=== PATIENT | female | born 1935 | race Caucasian/White ===

== ENCOUNTER → 2019-11-16 09:34 | Outpatient (CLI) | payer MEDICARE, SELFPAY ==
--- NOTE | ~2019-11-16 | XR_ITS ---
EXAMINATION: XR hip LT min 2V DATE: 11/16/2019 10:17 INDICATION: Left hip pain. Fall. TECHNIQUE: 3 views of left hip were obtained. COMPARISON: None. FINDINGS: There is a bipolar left hip hemiarthroplasty in near-anatomic alignment. No periprosthetic lucency to suggest loosening or infection. There are osteophytes of left acetabulum. No fracture. The re are stent grafts in the common iliac arteries and left external iliac artery. There is coil emboli zation of left internal iliac artery. IMPRESSION: 1. 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 2. Mild left hip osteoarthritis. Reviewed, dictated and finalized at location B. [employer]
== END ==
DX: M16.12 Unilateral primary osteoarthritis, left hip (principal)
CPT/HCPCS: 73502

== ENCOUNTER 2020-04-15 09:52 | Emergency (ER) | payer MEDICARE, SELFPAY ==
[2020-04-15 10:01] VITALS: BP 95/63; PULSE 81; RESP 16; TEMP 36.6; O2SAT 95
--- NOTE | 2020-04-15 10:11 | ED.SKABFB ---
HPI - Skin/Abscess/Foreign Bdy General Chief complaint: Skin/Abscess/Foreign Body Stated complaint: rash on side of face Time Seen by Provider: 04/15/20 10:10 Source: patient and RN notes reviewed Mode of arrival: ambulatory Limitations: no limitations History of Present Illness HPI narrative: 84 old female presents with concern to a red rash on the left side of her cheek. Reports she noticed it this morning, reports it carl[place], does not itch. Denies any new make-up, facial creams, personal care products, medications. Denies any current rash anywhere else. Reports she had a similar rash under her left arm that she was seen for by her doctor and prescribed clotrimazole triamcinolone cream. Reports that rash is gone away. Reports she has not used the cream on her face today. She denies any swollen lips, tongue, difficulty breathing, difficulty swallowing. MD complaint: rash Related Data Home Medications Medication Instructions Recorded Confirmed albuterol sulfate [Ventolin HFA] 2 puff INHALATION QID PRN 11/04/19 11/04/19 alprazolam 0.5 mg PO BID PRN 11/04/19 11/04/19 aspirin 325 mg PO DAILY 11/04/19 11/04/19 budesonide-formoterol [Symbicort] 2 puff INHALATION Q12H 11/04/19 11/04/19 clopidogrel [Plavix] 75 mg PO DAILY 11/04/19 11/04/19 oxybutynin chloride 15 mg PO DAILY 11/04/19 11/04/19 pantoprazole 40 mg PO QAM 11/04/19 11/04/19 potassium chloride 10 meq PO DAILY 11/04/19 11/04/19 sertraline 50 mg PO DAILY 11/04/19 11/04/19 Allergies Allergy/AdvReac Type Severity Reaction Status Date / Time atorvastatin Allergy Mild Unknown Verified 11/04/19 11:02 erythromycin base Allergy Mild Other Verified 11/04/19 11:02 naproxen Allergy Mild Unknown Verified 11/04/19 11:02 penicillin G Allergy Mild Rash Verified 11/04/19 11:02 Sulfa (Sulfonamide Allergy Mild Rash Verified 11/04/19 11:02 Antibiotics) tramadol Allergy Mild Unknown Verified 11/04/19 11:02 codeine AdvReac Mild Nausea and Verified 11/04/19 11:02 Vomiting Review of Systems Review of Systems: Narrative: CONSTITUTIONAL: Denies malaise, chills, sweats, or fever. EYES: Denies redness, or discharge. SKIN: Reports rash on left cheek MUSCULOSKELETAL: Denies myalgia. NEUROLOGIC: Denies headache. All systems reviewed & are unremarkable except as noted in HPI and below PMFSH Past Medical History Medical History (Updated 04/15/20 @ 10:22 by Yvrose Awan NP) Arthritis Bronchitis COPD (chronic obstructive pulmonary disease) GERD (gastroesophageal reflux disease) Hyperlipidemia Hypertension UTI (urinary tract infection) Surgical History Surgical History (Updated 11/05/19 @ 19:45 by Shira Blancas NP) H/O carotid endarterectomy H/O: hysterectomy Social History Social History (Updated 11/04/19 @ 12:32 by Shira Blancas NP) Smoking status: Former smoker Gender identity (if verbalized by the patient): Female Comments At time of signature, agree with nursing past medical, surgical, social and family history. There is no relevant family history pertinent to the presenting complaint Exam Narrative: Exam Narrative: GENERAL: Well-appearing, well-nourished, and in no acute distress. HEAD: Normocephalic, atraumatic. EYES: PERRLA, conjunctivae clear ENT: Nares clear. Mucous membranes moist. NECK: Supple. CHEST: No respiratory distress. Speaks in full sentences. HEART: Regular rate and rhythm. SKIN: Warm, dry. Erythematous patch noted to left cheek, nonraised, no papules noted. Nontender with no induration or edema. NEURO: Alert and oriented x3. PSYCH: Normal mood and affect Course Course Emergency Course: Instructed patient to apply her clotrimazole triamcinolone cream twice daily as directed by her doctor. And to follow-up with her doctor if symptoms do not improve. Patient is aware of diagnosis, understands and agrees to treatment plan. Anticipatory guidance given. Patient agrees to follow-up as directed and is aware of reasons to seek
== END 2020-04-15 10:29 | disposition home or self-care (01) ==
PROVIDERS: Emergency Provider Nurse Practitioner
DX: R21 Rash and other nonspecific skin eruption (principal); Z79.82 Long term (current) use of aspirin; Z79.02 Long term (current) use of antithrombotics/antiplatelets; M19.90 Unspecified osteoarthritis, unspecified site; J44.9 Chronic obstructive pulmonary disease, unspecified; K21.9 Gastro-esophageal reflux disease without esophagitis; E78.5 Hyperlipidemia, unspecified; I10 Essential (primary) hypertension; Z87.440 Personal history of urinary (tract) infections; Z87.891 Personal history of nicotine dependence
CPT/HCPCS: 99211; G0463

== ENCOUNTER 2020-09-24 11:00 | Emergency (ER) | payer MEDICARE, SELFPAY ==
--- NOTE | 2020-09-24 11:07 | ED.URI ---
HPI - URI/Sore Throat General Chief Complaint: Upper Respiratory Infection Stated Complaint: sore throat Time Seen by Provider: 09/24/20 11:07 Source: patient, RN notes reviewed and other (caregiver) History of Present Illness HPI Narrative: Patient is an 84-year-old female who presents the urgent care with her caregiver with complaints of a sore throat for the last 2 days. Patient states it is difficult to swallow due to the soreness. Also reports of some mild chest congestion without cough. Patient does have a history of COPD and uses albuterol when she remembers . Patient denies of any shortness of breath or chest pain. Denies of any other upper respiratory symptoms. Denies of any recent exposure to strep or Covid. Patient states she has been tested several times recently due to having to see her yard cleaner and her orthopedic due to recent right wrist fracture. Patient has been using hydrocodone for her pain. No other acute complaints. No acute distress noted. Patient and caregiver aware of the plan of care. Some parts of this dictation were generated by voice recognition software and may contain typographical and/or grammatical inaccuracies. Related Data Home Medications Medication Instructions Recorded Confirmed albuterol sulfate [Ventolin HFA] 2 puff INHALATION QID PRN 11/04/19 11/04/19 alprazolam 0.5 mg PO BID PRN 11/04/19 11/04/19 clopidogrel [Plavix] 75 mg PO DAILY 11/04/19 11/04/19 oxybutynin chloride 15 mg PO DAILY 11/04/19 11/04/19 pantoprazole 40 mg PO QAM 11/04/19 11/04/19 potassium chloride 10 meq PO DAILY 11/04/19 11/04/19 sertraline 50 mg PO DAILY 11/04/19 11/04/19 ferrous sulfate 325 mg PO DAILY 09/24/20 09/24/20 gabapentin 100 mg PO TID 09/24/20 09/24/20 hydrocodone-acetaminophen 1 tablet PO Q6H PRN 09/24/20 09/24/20 ropinirole 0.25 mg PO BID 09/24/20 09/24/20 Allergies Allergy/AdvReac Type Severity Reaction Status Date / Time atorvastatin Allergy Mild Unknown Verified 09/24/20 11:26 erythromycin base Allergy Mild Other Verified 09/24/20 11:26 naproxen Allergy Mild Unknown Verified 09/24/20 11:26 penicillin G Allergy Mild Rash Verified 09/24/20 11:26 Sulfa (Sulfonamide Allergy Mild Rash Verified 09/24/20 11:26 Antibiotics) tramadol Allergy Mild Unknown Verified 09/24/20 11:26 codeine AdvReac Mild Nausea and Verified 09/24/20 11:26 Vomiting Review of Systems Review of Systems: Narrative: CONSTITUTIONAL: Denies fever, chills, or sweats. EYES: Denies visual changes, redness, or discharge. ENT: Reports of sore throat CARDIOVASCULAR: Denies chest pain, palpitations, or edema. RESPIRATORY: Denies cough or dyspnea. GASTROINTESTINAL: Denies abdominal pain, nausea, vomiting, or diarrhea. GENITOURINARY: Denies dysuria or hematuria. SKIN: Denies rash or itching. MUSCULOSKELETAL: Denies back pain, joint pain, or myalgia. NEUROLOGIC: Denies headache, numbness, or weakness. All other systems reviewed are negative, except as documented in HPI. [facility] Past Medical History Medical History (Updated 09/24/20 @ 11:40 by CHATA Garcia) Arthritis Bronchitis COPD (chronic obstructive pulmonary disease) GERD (gastroesophageal reflux disease) Hyperlipidemia Hypertension UTI (urinary tract infection) Surgical History Surgical History (Updated 11/05/19 @ 19:45 by Shira Blancas NP) H/O carotid endarterectomy H/O: hysterectomy Social History Social History (Updated 11/04/19 @ 12:32 by Shira Blancas NP) Smoking status: Former smoker Gender identity (if verbalized by the patient): Female Comments At the time of my signature, I reviewed and agree with the nursing past medical, surgical, social, and family history. There is no relevant family history pertinent to the patient complaint. Exam Narrative: Exam Narrative: GENERAL: This is a well-nourished, well-developed patient, in no apparent distress. HEAD: normocephalic, atraumatic. EYES: PERRL. Sclera clear/white. Vision
[2020-09-24 11:11] VITALS: BP 106/64; PULSE 78; RESP 16; TEMP 36.3; O2SAT 98
[2020-09-24 11:32] VITALS: BP 106/64; PULSE 78; RESP 16; TEMP 36.3; O2SAT 98
== END 2020-09-24 11:45 | disposition home or self-care (01) ==
PROVIDERS: Emergency Provider Nurse Practitioner Family; PCP Internal Medicine
DX: J02.9 Acute pharyngitis, unspecified (principal); M19.90 Unspecified osteoarthritis, unspecified site; J44.9 Chronic obstructive pulmonary disease, unspecified; K21.9 Gastro-esophageal reflux disease without esophagitis; E78.5 Hyperlipidemia, unspecified; I10 Essential (primary) hypertension; Z87.891 Personal history of nicotine dependence
CPT/HCPCS: 87081; 87880; 99213; G0463

== ENCOUNTER 2021-01-17 09:42 | Emergency (ER) | payer MEDICARE, SELFPAY | END 2021-01-17 10:25 | disposition left against medical advice (07) | LOC: EXPBETH 09:46 | PROVIDERS: Emergency Provider Nurse Practitioner Family; PCP Internal Medicine | DX: Z53.21 Procedure and treatment not carried out due to patient leaving prior to being seen by health care provider (principal) | CPT/HCPCS: 99199 ==

== ENCOUNTER 2021-04-11 12:02 | Emergency (ER) | payer MEDICARE, SELFPAY ==
[2021-04-11 12:10] VITALS: BP 106/54; PULSE 84; RESP 20; TEMP 36.8; O2SAT 100
--- NOTE | 2021-04-11 12:44 | ED.FEMALEGU ---
HPI - Female Genitourinary General Chief complaint: Urogenital-Female Stated complaint: Possible UTI Time Seen by Provider: 04/11/21 12:36 Source: patient and RN notes reviewed Mode of arrival: ambulatory Limitations: no limitations History of Present Illness HPI Narrative: 85-year-old female presents with concern for urinary tract infection. Reports history of frequent urinary tract infections, last had a urinary tract infection approximately 2 months ago. Reports to 3-day history of dysuria, frequency, increased incontinence. Denies abdominal pain, back pain, fever, nausea, vomiting, confusion, decreased appetite, decreased activity. Related Data Home Medications Medication Instructions Recorded Confirmed albuterol sulfate [Ventolin HFA] 2 puff INHALATION QID PRN 11/04/19 04/11/21 alprazolam 0.5 mg PO BID PRN 11/04/19 04/11/21 clopidogrel [Plavix] 75 mg PO DAILY 11/04/19 04/11/21 oxybutynin chloride 15 mg PO DAILY 11/04/19 04/11/21 pantoprazole 40 mg PO QAM 11/04/19 04/11/21 potassium chloride 10 meq PO DAILY 11/04/19 09/24/20 sertraline 50 mg PO DAILY 11/04/19 09/24/20 ferrous sulfate 325 mg PO DAILY 09/24/20 04/11/21 gabapentin 100 mg PO BID 09/24/20 09/24/20 ropinirole 0.25 mg PO BID 09/24/20 09/24/20 Allergies Allergy/AdvReac Type Severity Reaction Status Date / Time atorvastatin Allergy Mild Unknown Verified 04/11/21 12:31 erythromycin base Allergy Mild Other Verified 04/11/21 12:31 naproxen Allergy Mild Unknown Verified 04/11/21 12:31 penicillin G Allergy Mild Rash Verified 04/11/21 12:31 Sulfa (Sulfonamide Allergy Mild Rash Verified 04/11/21 12:31 Antibiotics) tramadol Allergy Mild Unknown Verified 04/11/21 12:31 codeine AdvReac Mild Nausea and Verified 04/11/21 12:31 Vomiting Review of Systems Review of Systems: Narrative: CONSTITUTIONAL: Denies malaise, chills, sweats, or fever. CARDIOVASCULAR: Denies chest pain, palpitations, or edema. RESPIRATORY: Denies cough or dyspnea. GASTROINTESTINAL: Denies abdominal pain, nausea, vomiting, diarrhea GENITOURINARY: Reports frequency, dysuria. Denies hematuria. MUSCULOSKELETAL: Denies back pain, joint pain, or myalgia. All systems reviewed & are unremarkable except as noted in HPI and below PMFSH Past Medical History Medical History (Updated 04/11/21 @ 12:45 by Yvrose Awan NP) Arthritis Bronchitis COPD (chronic obstructive pulmonary disease) GERD (gastroesophageal reflux disease) Hyperlipidemia Hypertension UTI (urinary tract infection) Surgical History Surgical History (Updated 11/05/19 @ 19:45 by Shira Blancas NP) H/O carotid endarterectomy H/O: hysterectomy Social History Social History (Updated 11/04/19 @ 12:32 by Shira Blancas NP) Smoking status: Former smoker Gender identity (if verbalized by the patient): Female Comments At time of signature, agree with nursing past medical, surgical, social and family history. There is no relevant family history pertinent to the presenting complaint Exam Narrative: Exam Narrative: GENERAL: Well-appearing, well-nourished, and in no acute distress. HEAD: Normocephalic. EYES: PERRLA, conjunctivae clear. NECK: Supple. No lymphadenopathy CHEST: Clear to auscultation. No respiratory distress. HEART: Regular rate and rhythm. ABDOMEN: Soft, nontender upon palpation, nondistended, normal active bowel sounds, no palpable or pulsatile masses, no guarding. No CVA tenderness SKIN: Warm, dry, no rash. NEURO: Alert and oriented x3. PSYCH: Normal mood and affect Course Course Emergency Course: Patient is aware of diagnosis, understands and agrees to treatment plan. Anticipatory guidance given. Patient agrees to follow-up as directed and is aware of reasons to seek care at the emergency department. Portions of this record may have been created with voice recognition software Vital Signs Vital signs: Vital Signs Temperature 98.3 F 04/11/21 12:10 Pulse Rate 84 04/11/21 12:10
== END 2021-04-11 12:50 | disposition home or self-care (01) ==
PROVIDERS: Emergency Provider Nurse Practitioner; PCP Internal Medicine
DX: N39.0 Urinary tract infection, site not specified (principal); M19.90 Unspecified osteoarthritis, unspecified site; J44.9 Chronic obstructive pulmonary disease, unspecified; K21.9 Gastro-esophageal reflux disease without esophagitis; E78.5 Hyperlipidemia, unspecified; I10 Essential (primary) hypertension; Z87.891 Personal history of nicotine dependence
CPT/HCPCS: 81003; 87077; 87086; 87186; 99213; G0463

== ENCOUNTER 2021-05-23 16:32 | Emergency (ER) | payer MEDICARE, SELFPAY ==
[2021-05-23 16:40] VITALS: BP 90/60; PULSE 82; RESP 16; TEMP 36.8; O2SAT 96
--- NOTE | 2021-05-23 16:45 | ED.FEMALEGU ---
HPI - Female Genitourinary General Chief complaint: Urogenital-Female Stated complaint: Possible UTI Time Seen by Provider: 05/23/21 17:10 Source: patient and RN notes reviewed Mode of arrival: ambulatory Limitations: no limitations History of Present Illness HPI Narrative: 85-year-old female presents with concern for ongoing urinary tract infection. Reports she was seen 1 month ago here and was given ciprofloxacin for urinary tract infection. Reports she only took 3 to 4 tablets because the paper with the medication said it could kill her . She followed up with her urologist who put her on Macrobid which she recently finished. She reports symptoms have not improved with burning with urination and she just does not feel good. Patient's daughter reports that her mother is not acting like herself. She reports normal appetite, denies abdominal pain, flank pain, vomiting, fever, body aches. MD elicited complaint: UTI Related Data Home Medications Medication Instructions Recorded Confirmed alprazolam 0.5 mg PO BID PRN 11/04/19 05/23/21 clopidogrel [Plavix] 75 mg PO DAILY 11/04/19 05/23/21 oxybutynin chloride 15 mg PO DAILY 11/04/19 05/23/21 pantoprazole 40 mg PO QAM 11/04/19 05/23/21 potassium chloride 10 meq PO DAILY 11/04/19 05/23/21 sertraline 50 mg PO DAILY 11/04/19 05/23/21 ferrous sulfate 325 mg PO DAILY 09/24/20 05/23/21 gabapentin 100 mg PO BID 09/24/20 05/23/21 ropinirole 0.25 mg PO BID 09/24/20 05/23/21 Allergies Allergy/AdvReac Type Severity Reaction Status Date / Time atorvastatin Allergy Mild Unknown Verified 05/23/21 16:59 erythromycin base Allergy Mild Other Verified 05/23/21 16:59 naproxen Allergy Mild Unknown Verified 05/23/21 16:59 penicillin G Allergy Mild Rash Verified 05/23/21 16:59 Sulfa (Sulfonamide Allergy Mild Rash Verified 05/23/21 16:59 Antibiotics) tramadol Allergy Mild Unknown Verified 05/23/21 16:59 codeine AdvReac Mild Nausea and Verified 05/23/21 16:59 Vomiting Review of Systems Review of Systems: CONSTITUTIONAL: Denies malaise, chills, sweats, or fever. CARDIOVASCULAR: Denies chest pain, palpitations, or edema. RESPIRATORY: Denies cough or dyspnea. GASTROINTESTINAL: Denies abdominal pain, nausea, vomiting, diarrhea, bloody, or mucous stools. GENITOURINARY: Reports dysuria, hematuria, urgency. MUSCULOSKELETAL: Denies flank pain or myalgia. NEUROLOGIC: Denies numbness, weakness, or headache. PSYCHIATRIC: Denies confusion All systems reviewed & are unremarkable except as noted in HPI and below PMFSH Past Medical History Medical History (Updated 05/23/21 @ 17:32 by Yvrose Awan NP) Arthritis Bronchitis COPD (chronic obstructive pulmonary disease) GERD (gastroesophageal reflux disease) Hyperlipidemia Hypertension UTI (urinary tract infection) Surgical History Surgical History (Updated 11/05/19 @ 19:45 by Shira Blancas NP) H/O carotid endarterectomy H/O: hysterectomy Social History Social History (Updated 11/04/19 @ 12:32 by Shira Blancas NP) Smoking status: Former smoker Gender identity (if verbalized by the patient): Female Comments At time of signature, agree with nursing past medical, surgical, social and family history. There is no relevant family history pertinent to the presenting complaint Exam Narrative: GENERAL: Well-appearing, well-nourished, and in no acute distress. HEAD: Normocephalic. EYES: PERRLA, conjunctivae clear. NECK: Supple. No lymphadenopathy CHEST: Clear to auscultation. No respiratory distress. HEART: Regular rate and rhythm. ABDOMEN: Mild suprapubic tenderness. Soft, nontender upon palpation, nondistended, normal active bowel sounds, no palpable or pulsatile masses, no guarding. No CVA tenderness SKIN: Warm, dry, no rash. NEURO: Alert and oriented x3. PSYCH: Normal mood and affect Course Course Emergency Course: Patient does not have any history of IgE mediated reaction to penicillin. Patient is agreeable to R
[2021-05-23 16:59] VITALS: BP 90/60; PULSE 82; RESP 16; TEMP 36.8; O2SAT 96
[2021-05-23] MEDS: cefTRIAXone 250 MG VIAL 1000 MG IM (17:36)
[2021-05-23] MEDS: LIDOCAINE HCL 1% LOCAL INJ 20 ML VIAL INFILTRATE (17:36)
--- NOTE | 2021-05-23 17:54 | PC.NURSE ---
1736--RN ADMINISTERED 250MG OF ROCEPHIN IM ORDERED BY PROVIDER.
== END 2021-05-23 18:00 | disposition home or self-care (01) ==
PROVIDERS: Emergency Provider Nurse Practitioner; PCP Internal Medicine
DX: N39.0 Urinary tract infection, site not specified (principal); M19.90 Unspecified osteoarthritis, unspecified site; J44.9 Chronic obstructive pulmonary disease, unspecified; K21.9 Gastro-esophageal reflux disease without esophagitis; E78.5 Hyperlipidemia, unspecified; I10 Essential (primary) hypertension; Z87.891 Personal history of nicotine dependence
CPT/HCPCS: 81003; 87077; 87086; 87186; 96372; 99213; G0463; J0696

== ENCOUNTER 2021-06-11 13:22 | Outpatient (CLI) | payer MEDICARE, SELFPAY ==
--- NOTE | ~2021-06-11 | US_ITS ---
US retroperitoneal comp 06/11/2021 14:07 Procedure: Realtime transabdominal ultrasound of the kidneys and bladder. Indication: Cystitis Comparison: No prior studies for comparison. Findings: Renal echotexture is normal bilaterally without hydronephrosis, contour deforming mass or r enal calculus. The right kidney measures 8.5 cm and left kidney measures 9.8 cm. Bladder is not well distended for evaluation of wall thickening. Impression: 1: Unremarkable renal ultrasound. No stones, masses or hydronephrosis. Reviewed, dictated and finalized at location A. Impression: 1: Unremarkable renal ultrasound. No stones, masses or hydronephrosis.
== END 2021-06-11 13:23 | disposition home or self-care (01) ==
LOC: ANHIMG 13:24
PROVIDERS: PCP Internal Medicine; Visit Provider Nurse Practitioner Family
DX: N30.20 Other chronic cystitis without hematuria (principal)
CPT/HCPCS: 76770

== ENCOUNTER 2021-06-20 08:11 | Emergency (ER) | payer MEDICARE, SELFPAY ==
[2021-06-20 08:22] VITALS: BP 128/100; PULSE 79; RESP 20; TEMP 36.6; O2SAT 95
--- NOTE | 2021-06-20 08:34 | ED.FEMALEGU ---
HPI - Female Genitourinary General Chief complaint: Urogenital-Female Stated complaint: poss uti Time Seen by Provider: 06/20/21 08:30 Source: patient and RN notes reviewed Mode of arrival: ambulatory Limitations: no limitations History of Present Illness HPI Narrative: 85-year-old female presents with concern for urinary tract infection. Patient has frequent urinary tract infections and this is her third visit to [facility] for urinary tract infection since March 2021. Reports she is being followed by urologist, has scheduled bladder surgery for prolapsed bladder in June. Reports she is incontinent of stool and attributes that to her frequent urinary tract infections. Reports she called her urologist yesterday to report urinary tract infection symptoms, her urologist called her in ciprofloxacin. In the past patient was prescribed ciprofloxacin in this clinic, and refused to take it due to possible side effects. Patient reports she took 1 dose of the ciprofloxacin prescribed by her urologist before she realized it was the medicine she did not want to take and has not taken any subsequent doses. Patient reports dysuria, frequency. Denies nausea, vomiting, back pain, fever, body aches. MD elicited complaint: UTI Related Data Home Medications Medication Instructions Recorded Confirmed clopidogrel [Plavix] 75 mg PO DAILY 11/04/19 06/20/21 oxybutynin chloride 15 mg PO DAILY 11/04/19 06/20/21 pantoprazole 40 mg PO QAM 11/04/19 06/20/21 potassium chloride 10 meq PO DAILY 11/04/19 06/20/21 sertraline 50 mg PO DAILY 11/04/19 06/20/21 ferrous sulfate 325 mg PO DAILY 09/24/20 06/20/21 gabapentin 100 mg PO BID 09/24/20 06/20/21 ropinirole 0.25 mg PO BID 09/24/20 06/20/21 Allergies Allergy/AdvReac Type Severity Reaction Status Date / Time atorvastatin Allergy Mild Unknown Verified 06/20/21 08:34 erythromycin base Allergy Mild Other Verified 06/20/21 08:34 naproxen Allergy Mild Unknown Verified 06/20/21 08:34 penicillin G Allergy Mild Rash Verified 06/20/21 08:34 Sulfa (Sulfonamide Allergy Mild Rash Verified 06/20/21 08:34 Antibiotics) tramadol Allergy Mild Unknown Verified 06/20/21 08:34 codeine AdvReac Mild Nausea and Verified 06/20/21 08:34 Vomiting Review of Systems Review of Systems: CONSTITUTIONAL: Denies malaise, chills, sweats, or fever. CARDIOVASCULAR: Denies chest pain, palpitations, or edema. RESPIRATORY: Denies cough or dyspnea. GASTROINTESTINAL: Denies abdominal pain, nausea, vomiting, diarrhea. Reports chronic incontinence of stool GENITOURINARY: Reports dysuria, frequency. Denies any pain, urgency, hematuria. MUSCULOSKELETAL: Denies back pain or myalgia. All systems reviewed & are unremarkable except as noted in HPI and below PMFSH Past Medical History Medical History (Updated 06/20/21 @ 09:40 by Yvrose Awan NP) Arthritis Bronchitis COPD (chronic obstructive pulmonary disease) GERD (gastroesophageal reflux disease) Hyperlipidemia Hypertension UTI (urinary tract infection) Surgical History Surgical History (Updated 11/05/19 @ 19:45 by Shira Blancas NP) H/O carotid endarterectomy H/O: hysterectomy Social History Social History (Updated 11/04/19 @ 12:32 by Shira Blancas NP) Smoking status: Former smoker Gender identity (if verbalized by the patient): Female Comments At time of signature, agree with nursing past medical, surgical, social and family history. There is no relevant family history pertinent to the presenting complaint Exam Narrative: GENERAL: Well-appearing, well-nourished, and in no acute distress. HEAD: Normocephalic. EYES: PERRLA, conjunctivae clear. NECK: Supple. No lymphadenopathy CHEST: Clear to auscultation. No respiratory distress. HEART: Regular rate and rhythm. ABDOMEN: Soft, nontender upon palpation, nondistended, normal active bowel sounds, no palpable or pulsatile masses, no guarding. No CVA tenderness SKIN: Warm, dry, no rash. NEURO: A
[2021-06-20] MEDS: cefTRIAXone 1 GM VIAL IM (09:42)
[2021-06-20] MEDS: LIDOCAINE HCL 1% LOCAL INJ 20 ML VIAL 2.1 ML IM (09:42)
== END 2021-06-20 10:02 | disposition home or self-care (01) ==
PROVIDERS: Emergency Provider Nurse Practitioner; PCP Internal Medicine
DX: N39.0 Urinary tract infection, site not specified (principal); M19.90 Unspecified osteoarthritis, unspecified site; J44.9 Chronic obstructive pulmonary disease, unspecified; K21.9 Gastro-esophageal reflux disease without esophagitis; E78.5 Hyperlipidemia, unspecified; I10 Essential (primary) hypertension; Z87.891 Personal history of nicotine dependence
CPT/HCPCS: 81003; 87086; 96372; 99213; G0463; J0696

== ENCOUNTER 2021-06-22 11:39 | Emergency (ER) | payer MEDICARE, SELFPAY ==
--- NOTE | ~2021-06-22 | CT_ITS ---
EXAMINATION: CT abdomen pelvis wo con EXAM DATE: 06/22/2021 14:56 INDICATION: Pelvic pain TECHNIQUE: Spiral CT of the abdomen and pelvis was performed without contrast. Axial, coronal and sag ittal images were reviewed. The dose-length product (DLP) for this examination was 943.34 mGy-cm. T he exposure was tailored according to patient size (auto mA exposure control), and iterative reconstr uction (ASIR) was used as additional dose reduction technique. There is no prior study for compariso n. FINDINGS: The lower aspect of the thoracic abdominal aorta is dilated up to 5.0 cm. There is a mid an d distal aortoiliac endograft stent. There is a right renal artery origin stent. There is no nephroli thiasis or hydronephrosis. There is a pessary. The uterus is not identified and has likely been surg ically resected. The bladder is unremarkable. The liver, spleen, adrenal glands and pancreas are un remarkable. Gallbladder is unremarkable. No biliary obstruction. There is no retroperitoneal or pe lvic lymphadenopathy. Probable identification of a normal appendix. No pericecal inflammation. There is moderate sigmoid co lonic diverticulosis. There is no adjacent inflammatory change to suggest diverticulitis. There is a 3 cm duodenal diverticulum. The stomach and small bowel are unremarkable. There is expected amoun t of colonic stool. No free intraperitoneal gas. The heart is normal in size. There are no peric ardial or pleural effusions. The lung bases are unremarkable. There are no osteoblastic or osteolyt ic lesions identified. No evidence of sacral insufficiency fracture. Mild lumbar dextroscoliosis. Lef t hip arthroplasty causing some limitations for evaluating the pelvis. IMPRESSION: 1. No nephrolithiasis, hydronephrosis or acute intra-abdominal findings. 2. Descending thoracic aortic 5 cm aneurysm. Stent in abdominal aneurysm. 3. Colonic, duodenal diverticulosis. Reviewed, dictated and finalized at location B.
--- NOTE | ~2021-06-22 | XR_ITS ---
EXAMINATION: XR chest 1V portable DATE: 06/22/2021 13:54 INDICATION: Altered mental status TECHNIQUE: frontal view of the chest was obtained. COMPARISON: None FINDINGS: Minimal linear bibasilar atelectasis. Additional mild airspace opacity in the right upper lung zone. No pleural effusion or pneumothorax. The cardiomediastinal silhouette is normal. Tortuous atheroscler otic aorta. Likely chronic T8 compression fracture with 20% left-sided vertebral body height loss. 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 IMPRESSION: 1. Opacities in the right upper lung zone which could represent atelectasis or less likely pneumonia. Reviewed, dictated and finalized at location A.
--- NOTE | ~2021-06-22 | CT_ITS ---
EXAMINATION: CT brain wo con EXAM DATE: 06/22/2021 14:05 INDICATION: Confusion. Urinary tract infection. TECHNIQUE: Spiral CT of the head was performed without contrast. Axial, coronal and sagittal images were reviewed. The dose-length product (DLP) for this examination was 605.33 mGy-cm. The exposure w as tailored according to patient size, and iterative reconstruction (ASIR) was used as additional dos e reduction technique. There is no prior study for comparison. FINDINGS: Small to moderate size old left frontal lobe infarction. There is no acute intraparenchymal hemorrhage. No evidence of intraparenchymal brain mass lesion. No evidence of acute infarction. P lease note that initial head CT has limited sensitivity for small or acute infarctions. There is mode rate periventricular and subcortical hypodensity, nonspecific but probably related to small vessel is chemic disease. There is moderate prominence of the sulci and ventricles related to cerebral atroph y. There is intracranial carotid arteriosclerosis. There are no extra-axial collections. There is no mass effect or midline shift. The orbits bilateral are unremarkable. Soft tissue is unremarkabl e. The visualized sinuses and mastoid air cells are well aerated. IMPRESSION: 1. No acute intracranial findings. 2. Chronic age related findings. 3. 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 Reviewed, dictated and finalized at location B.
[2021-06-22 11:57] VITALS: BP 148/68; PULSE 83; RESP 20; TEMP 36.8; O2SAT 97
[2021-06-22 12:26] LABS: Add Urine Microscopic? YES; Appearance Urine Cloudy (Clear); Bacteria Urine Trace /hpf; Bilirubin Urine Negative (Negative); Blood Urine 2+ (Negative); Color Urine Amber (Yellow); Glucose Urine UA Negative (Negative); Ketones Urine Negative (Negative); Leukocyte Esterase Ur 3+ LEU/UL (Negative); Mucus Urine Rare /lpf; Nitrate Urine Negative (Negative); Protein Urine Negative (Negative); RBC Urine 21-50 /hpf (0-2); Specific Grav Ur 1.012 (1.001-1.035); Squamous Epithelial Cell Urine Many /hpf (Few); WBC Urine 31-50 /hpf
[2021-06-22 12:43] VITALS: BP 148/68; PULSE 82; RESP 16; O2SAT 95
--- NOTE | 2021-06-22 13:50 | ED.AMS ---
HPI - Altered Mental Status General Chief Complaint: Urogenital-Female Stated Complaint: UTI Time Seen by Provider: 06/22/21 12:56 History of Present Illness HPI narrative: 85 yo female w/ h/o reccurent UTI presents to the ED c/o UTI. She has reportedly been treated with multiple courses of antibiotics without being able to clear a UTI. She was seen at urgent care on Tuesday and they reportedly told her that there was nothing else that they could do and she needed to come to the ED. She then called Felix Pettit with urology and she also told her to come into the ED. The patient is endorsing dysuria, abdominal pain, and urinary frequency. On review of the chart her urine culture from Tuesday is negative. She is reportedly planning to have surgery for bladder prolapse in the near future. Related Data Home Medications Medication Instructions Recorded Confirmed clopidogrel [Plavix] 75 mg PO DAILY 11/04/19 06/20/21 oxybutynin chloride 15 mg PO DAILY 11/04/19 06/20/21 pantoprazole 40 mg PO QAM 11/04/19 06/20/21 potassium chloride 10 meq PO DAILY 11/04/19 06/20/21 sertraline 50 mg PO DAILY 11/04/19 06/20/21 ferrous sulfate 325 mg PO DAILY 09/24/20 06/20/21 gabapentin 100 mg PO BID 09/24/20 06/20/21 ropinirole 0.25 mg PO BID 09/24/20 06/20/21 Allergies Allergy/AdvReac Type Severity Reaction Status Date / Time atorvastatin Allergy Mild Unknown Verified 06/20/21 08:34 erythromycin base Allergy Mild Other Verified 06/20/21 08:34 naproxen Allergy Mild Unknown Verified 06/20/21 08:34 penicillin G Allergy Mild Rash Verified 06/20/21 08:34 Sulfa (Sulfonamide Allergy Mild Rash Verified 06/20/21 08:34 Antibiotics) tramadol Allergy Mild Unknown Verified 06/20/21 08:34 codeine AdvReac Mild Nausea and Verified 06/20/21 08:34 Vomiting Review of Systems Review of Systems: All systems reviewed & are unremarkable except as noted in HPI and below Cardiovascular: Cardiovascular: Denies chest pain Respiratory: Respiratory: Denies dyspnea Neurologic: Reports system reviewed and no additional complaints, except as documented PMFSH Past Medical History Medical History Arthritis Bronchitis COPD (chronic obstructive pulmonary disease) GERD (gastroesophageal reflux disease) Hyperlipidemia Hypertension UTI (urinary tract infection) Surgical History Surgical History H/O carotid endarterectomy H/O: hysterectomy Social History Social History Smoking status: Former smoker Gender identity (if verbalized by the patient): Female Exam Const: General: healthy appearing, no acute distress and alert Orientation/consciousness: patient oriented x3 HENMT: Head: normal to inspection Neck: Neck: normal visual inspection Resp: Effort & Inspection: normal respiratory effort Auscultation: clear to auscultation bilaterally, no rales, no rhonchi and no wheezes Cardio: Jugular venous distension: no JVD Rate: regular rate Rhythm: regular rhythm Heart sounds: no murmurs GI: Inspection: non-distended GI Palp: Yes Soft to palpation, Yes Tenderness to palpation present (GI) (mild suprapubic), Yes Guarding due to palpation present (GI) and No Rebound tenderness present : General: Yes no CVA tenderness Skin: General skin exam: normal color Neuro: General: patient oriented x3 and moves all extremities Speech: normal speech Extrem: General: no edema Psych: Appearance: well kempt Affect: normal affect Course Vital Signs Vital signs: Vital Signs Temperature 36.8 C 06/22/21 11:57 Pulse Rate 83 06/22/21 11:57 Respiratory Rate 20 06/22/21 11:57 Blood Pressure 148/68 H 06/22/21 11:57 Pulse Oximetry 97 06/22/21 11:57 Temperature 36.8 C 06/22/21 11:57 Pulse Rate 78 06/22/21 16:45 Respiratory Rate 16 06/22/21 16:45 Blood Pressure 1
[2021-06-22 14:29] LABS: Basophils Percent Auto 0.5 % (0.2-1.2); Eosinophils Absolute Auto 0.1 K/mm3 (0-0.3); Eosinophils Percent Auto 1.8 % (0-4.4); Hematocrit 36.3 % (37.0-47.0); Hemoglobin 11.6 g/dL (12.0-15.0); Immature Granulocyte Absolute 0.04 K/mm3 (0.00-0.031); Immature Granulocyte Percent A 0.5 % (0-0.5); Lymphocytes Absolute Auto 2.48 K/mm3 (0.9-3.2); Lymphocytes Percent Auto 32.8 % (18.3-44.2); Mean Corpuscular Volume 100.3 fl (80-100); Mean Platelet Volume 10.6 fl (7.4-10.4); Monocytes Absolute Auto 0.5 K/mm3 (0.1-0.6); Monocytes Percent Auto 7.1 % (2.6-8.5); Neutrophils Absolute Auto 4.3 K/mm3 (1.3-6.7); Neutrophils Percent Auto 57.3 % (45.5-73.1); Platelet Count Result 155 k/mm3 (150-375); Red Blood Count 3.62 M/mm3 (4.2-5.4); Red Cell Distribution Width 13.4 % (11.5-14.5); White Blood Count 7.6 K/mm3 (4.5-10.0)
[2021-06-22 14:36] LABS: Alanine Aminotransferase 14 U/L (4-35); Albumin Level 4.3 g/dL (3.5-5.1); Alkaline Phosphatase 137 U/L (38-126); Anion Gap 4 mmol/L (8-16); Aspartate Amino Transferase 30 U/L (14-36); Bilirubin,Total 0.4 mg/dL (0.2-1.3); Blood Urea Nitrogen 16 mg/dL (7-17); Calcium 9.5 mg/dL (8.4-10.2); Carbon Dioxide 29 mmol/L (22-30); Chloride 102 mmol/L (98-107); Estimated CRCL calculation 44 ml/min; Estimated Glomerular Filt Rate > 60; Glucose 106 mg/dL (65-110); Sodium 135 mmol/L (137-145)
[2021-06-22 14:40] LABS: INR 0.9; Prothrombin Time 12.2 Seconds (11.1-14.7)
[2021-06-22 14:41] LABS: Partial Thromboplastin Time 29.6 SECONDS (22.3-36.8)
[2021-06-22 16:45] VITALS: BP 136/76; PULSE 78; RESP 16; O2SAT 98
== END 2021-06-22 16:46 | disposition home or self-care (01) ==
PROVIDERS: Emergency Medicine; Emergency Provider Emergency Medicine; PCP Internal Medicine
DX: R30.0 Dysuria (principal); J44.9 Chronic obstructive pulmonary disease, unspecified; K21.9 Gastro-esophageal reflux disease without esophagitis; E78.5 Hyperlipidemia, unspecified; I10 Essential (primary) hypertension; M19.90 Unspecified osteoarthritis, unspecified site; Z79.02 Long term (current) use of antithrombotics/antiplatelets; Z87.891 Personal history of nicotine dependence; Z87.440 Personal history of urinary (tract) infections; I71.2 Thoracic aortic aneurysm, without rupture; K57.90 Diverticulosis of intestine, part unspecified, without perforation or abscess without bleeding; R91.8 Other nonspecific abnormal finding of lung field; R10.9 Unspecified abdominal pain
CPT/HCPCS: 36415; 70450; 71045; 74176; 80053; 81001; 85025; 85610; 85730; 87086; 87088; 99284